=== PATIENT | female | born 1985 | race Caucasian/White ===

== ENCOUNTER 2018-07-26 15:00 | Inpatient (IN) | END 2018-07-27 19:05 | disposition home or self-care (01) | DRG 998 ==

== ENCOUNTER 2018-07-30 10:51 | Outpatient (CLI) | END 2018-07-30 12:50 | disposition home or self-care (01) ==

== ENCOUNTER 2018-09-16 12:33 | Inpatient (IN) | payer MEDICAID ==
[~2018-09-16] VITALS: Ht 149.9 cm; Wt 92.5 kg
[~2018-09-16 12:33] MED LIST: FER325 PO; PREN-93 PO
[2018-09-16 12:52] VITALS: Ht 149.9 cm; Wt 92.5 kg
[2018-09-16] MEDS: LACTATED RINGER'S 1,000 ML IV SCH ×3 (13:08→22:05)
--- NOTE | 2018-09-16 16:42 | HP ---
Date/Time of Note Date/Time of Note DATE: 09/16/18 TIME: 16:21 OB - History Hx of Present Free Text/Dictation 33 y.o at 38w1d sent from NST room by yessenia for extended monitor for tracing. Due to severe anemia they were doing antepartum test biweeekly today FRANKI 6.1 from 12.8 which was previously done even after hydration it was still 6+ ROM plus neg admitted for IV hydration today and repeat FRANKI in am ,also we could monitor tracing. Chief Complaint: oligohydramnios Estimated Due Date: Sep 29, 2018 : 5 Para: 4 Spontaneous : 0 Therapeutic : 0 Care: Good Care Ultrasounds: Normal mid trimester US, Other Obstetrical Complications: None Medical Complications: Other (severe anemia) Past Family/Social History * Past Medical, Surgical, Family and Obstetric Histories reviewed from chart. Blood Type: Unknown Rubella: unknown RPR/VDRL: Negative GBS Status: Unknown HBsAG: Unknown OB Admission Exam Physical Exam HEENT: WNL Heart: Rhythm Normal Lungs: Clear, Equal Abdomen: WNL Extremities: Normal Reflexes: Normal Cervical Dilatation: other Station: Other Heart Rate: 130's Accelerations: Accelerations Present Decelerations: No Decelerations Varibility: Minimum Contractions on Admission: None OB Assessment/Plan Reason for admission: other (oligohydramnios) Plan: Other (IV hydration and FRANKI in am extended observation of FHT) YOGESH WALKER MD Sep 16, 2018 16:34
[2018-09-17] MEDS: LACTATED RINGER'S 1,000 ML IV SCH ×3 (06:01→22:43)
[2018-09-17] MEDS ORDERED: PRENATAL VITAMIN PO SCH (09:00)
--- NOTE | 2018-09-17 19:05 | QN ---
Documentation Comment 33-year-old 004 with single intrauterine at 38 weeks and 2 days with borderline amniotic fluid index and no variability on heart rate tracing admitted for prolonged monitoring and repeat ultrasound. Initial FRANKI on perinatology ultrasound was 6.1, repeat in labor and delivery again was 6.1 cm. Patient was admitted for IV hydration. Repeat FRANKI today was 12.3. However on tracing of heart rate she has multiple episodes of no variability, has good acceleration and no deceleration. Due to gestational age of 38 weeks and 2 days with multiple episodes of no variability on heart rate tracing patient discussed with the perinatologistDr. Gutierrez who recommend delivery. DEISY CAMACHO Sep 17, 2018 19:05
[2018-09-17] MEDS ORDERED: BISACODYL 10 MG SUPP PR PRN (19:30)
[2018-09-17] MEDS ORDERED: MAGNESIUM HYDROXIDE 30ML CUP PO ONE (19:30)
[2018-09-17] MEDS ORDERED: BUTORPHANOL 2 MG INJ IV PRN (21:00)
[2018-09-17] MEDS ORDERED: OXYTOCIN 30 UNITS/LR 500 ML IV SCH ×3 (21:00)
[2018-09-17] MEDS ORDERED: OXYTOCIN 30 UNITS/LR 500 ML IV PRN (21:00)
[2018-09-17] MEDS ORDERED: OXYCODONE/ACETAMINOPHEN (5/325) TAB PO PRN (21:00)
[2018-09-17] MEDS ORDERED: IBUPROFEN 600 MG TAB PO PRN (21:00)
[2018-09-17] MEDS ORDERED: LIDOCAINE 1% (MPF) 30 ML INJ INJ PRN (21:00)
[2018-09-17] MEDS ORDERED: METHYLERGONOVINE 0.2 MG INJ IM PRN (21:00)
[2018-09-17] MEDS ORDERED: MISOPROSTOL 200 MCG TAB PR PRN (21:00)
[2018-09-17] MEDS ORDERED: CARBOPROST 250 MCG INJ IM PRN (21:00)
[2018-09-18] MEDS: LACTATED RINGER'S 1,000 ML IV SCH ×2 (07:18→15:36)
[2018-09-18 17:09] VITALS: BP 125/79; PULSE 88; RESP 18
[2018-09-18] MEDS: DEXTROSE 5%-LR 1,000 ML IV SCH (17:41)
[2018-09-18] MEDS: LACTATED RINGER'S 1,000 ML IV* SCH (17:41)
--- NOTE | 2018-09-18 17:41 | LDN ---
Date/Time of Note Date/Time of Note DATE: 09/18/18 TIME: 17:37 Delivery Summary 33-year-old 004 with single intrauterine at 38 weeks and 3 days delivered a viable male over intact perineum. Bladder completely drained by straight cath. Vacuum delivery with risks, benefits and alternatives discussed in detail with patient and her . Both expressed understanding, all of their questions answered. They have agreed. Vacuum was used to facilitate delivery due to bradycardia. Nose and mouth suctioned. Rest of body delivered. Cord clamped and cut after stopping pulsation. Baby given to the nurse. Placenta delivered intact and spontaneously with three-vessel cord. Patient tolerated procedure well. Time of delivery 16:41 Weight 7 pounds 7 ounces 9 at 1 minute and 9 at 5 minutes EBL 200 mL Weeks of Gestation 38 weeks and 3 days Placenta Delivered: Spontaneously Episiotomy: No Anesthesia type: None Estimated blood loss: 200 Sponge & Needle done & correct: Yes All needle counts correct: Yes Any foreign bodies felt in the: No Delivery Information Sex Sex: male Apgars 1 Minute: 9 5 Minute: 9 10 Minute: 10 Suctioning Nose & mouth suctioned at yessenia: Yes Umbilical Cord Umbilical cord with: 3 Vessels Cord presentations: no nuchal cord Cord Blood was obtained: Yes Mother & Baby Disposition Disposition Mom & Baby to Maternity; Good: Yes DEISY CAMACHO Sep 18, 2018 17:41
[2018-09-18] MEDS ORDERED: LANOLIN HPA 1 PKT TOP PRN (18:00)
[2018-09-18] MEDS ORDERED: OXYTOCIN 30 UNITS/LR 500 ML IV PRN (18:00)
[2018-09-18] MEDS ORDERED: ONDANSETRON 4 MG INJ IV PRN (18:00)
[2018-09-18] MEDS ORDERED: DIPHENHYDRAMINE 50 MG INJ IV PRN (18:00)
[2018-09-18] MEDS ORDERED: ACETAMINOPHEN 325 MG TAB PO PRN (18:00)
[2018-09-18] MEDS ORDERED: BENZOCAINE 20% 56 ML SPRAY TOP PRN (18:00)
[2018-09-18] MEDS ORDERED: WITCH HAZEL/GLYCERIN PAD PR PRN (18:00)
[2018-09-18] MEDS ORDERED: METHYLERGONOVINE 0.2 MG INJ IM PRN (18:00)
[2018-09-18] MEDS ORDERED: MISOPROSTOL 200 MCG TAB PR PRN (18:00)
[2018-09-18] MEDS ORDERED: CARBOPROST 250 MCG INJ IM PRN (18:00)
[2018-09-18] MEDS ORDERED: ZOLPIDEM 5 MG TAB PO PRN (18:00)
[2018-09-18] MEDS ORDERED: DIBUCAINE 1% 30 GM OINT TOP PRN (18:00)
[2018-09-18] MEDS ORDERED: OXYCODONE/ASPIRIN (4.88/325) TAB PO PRN (18:00)
--- NOTE | 2018-09-18 18:33 | NUR ---
rcvd. pt. via wheelchair w/ iv infusing 30 pitocin at 125ml/hr. pt. up to b.r. and voided 300ml w/out complaints. rn assist w/ pericare. pt. denies pain at this time. in demand used for poc regarding vaccinations, safety, on demand, jayla #[id number]. pt. vs wnl.
[2018-09-18 18:36] VITALS: BP 121/60; PULSE 76; RESP 20
[2018-09-18] MEDS: IBUPROFEN 600 MG TAB PO SCH (18:45)
[2018-09-18 20:20] VITALS: BP 111/52; PULSE 79; RESP 18
[2018-09-19] VITALS: BP 115/61; PULSE 75; RESP 19
[2018-09-19] MEDS: IBUPROFEN 600 MG TAB PO SCH ×5 (00:33→23:59)
[2018-09-19] MEDS: LACTATED RINGER'S 1,000 ML IV* SCH (01:41)
[2018-09-19] MEDS: DEXTROSE 5%-LR 1,000 ML IV SCH (01:41)
[2018-09-19 04:00] VITALS: BP 100/54; PULSE 73; RESP 17
--- NOTE | 2018-09-19 05:56 | NUR ---
EOSS Patient in stable condition, bonding well with baby, voiding without difficulty, fundus firm with small amount of lochia, ambulating well, afebrile, pain controlled by the medication.
[2018-09-19] MEDS ORDERED: NACL 0.9% 3 ML SYG IV SCH (09:00)
[2018-09-19] MEDS: SENNA/DOCUSATE NA (8.6MG/50MG) TAB PO PRN ×2 (09:08→21:39)
[2018-09-19 09:16] VITALS: BP 110/75; PULSE 81; RESP 16
[2018-09-19 11:30] VITALS: BP 119/66; PULSE 92; RESP 18
--- NOTE | 2018-09-19 14:03 | NSTRPT ---
NST Information Datetime Report Generated by CPN: 09/19/2018 14:03 Datetime: 09/16/2018 10:05 NST Information EGA: 38.1 Test Number: 3 Time on Monitor: 09/16/2018 10:40 Time off Monitor: 09/16/2018 10:59 NST Duration (Min): 19 Reason for NST: Other Reason for NST Other: SEVERE ANEMIA Test and Monitor Explained: Monitor Explained; Test Explained; Verbalized Understanding Pulse: 94 SBP: 118 DBP: 73 Test Evaluation NST Interventions: None Patient States Movement: Present Contraction Frequency: NONE FHR Baseline : 150 Variability: Minimal - <=5bpm Accelerations: 15X15 Decelerations: None FHR Category: Category II NST Results: Questionable Provider Notified: JANICE Comments: PT TO U/S CEPHALIC. FRANKI 6.[address] NASH[address] DR CAMACHO NOTIFIED OF CATEGORY 2 TRACING AND 6.1 FRANKI. PT SENT TO [facility] FOR EXTENDED MONITORING Electronically Signed By E-Signature: with User ID: [id number] Datetime: 09/13/2018 09:51 NST Information EGA: 37.5 NST Duration (Min): 34 Datetime: 09/02/2018 14:38 NST Information EGA: 36.1 NST Duration (Min): 42
[2018-09-19 16:00] VITALS: BP 116/72; PULSE 87; RESP 16
--- NOTE | 2018-09-19 17:22 | NUR ---
EOSS:VSS, FUNDUS FIRM, LOCHIA SMALL, VOIDING WITHOUT DIFFICULTY, BONDING WELL WITH BABY, MOTRIN CONTROLLS PAIN PER PATIENT, KILEY PO FOOD AND FLUIDS WITHOUT DIFFICULTY, OFTEN.
[2018-09-19 20:00] VITALS: BP 130/69; PULSE 74; RESP 18
[2018-09-20 04:00] VITALS: BP 128/74; PULSE 73; RESP 18
--- NOTE | 2018-09-20 04:57 | NUR ---
EOSS: Patient's vital signs are stable. Fundus is firm with scant lochia. Voiding without difficulty no BM . Bonding well with baby. Plan of care ongoing.
[2018-09-20] MEDS: IBUPROFEN 600 MG TAB PO SCH ×2 (05:44→11:18)
[2018-09-20 08:00] VITALS: BP 113/77; PULSE 68; RESP 18
[2018-09-20] MEDS ORDERED: MEASLES,MUMPS,RUBELLA VACCINE INJ SC* ONE (09:00)
[2018-09-20] MEDS ORDERED: DIPHTH/TET/ACEL PERTUSS (ADULT) 0.5 ML VIAL IM* ONE (09:00)
--- NOTE | 2018-09-20 12:23 | QN ---
Documentation Comment PPD#2 is stable afebrile tolerates diet No VB +BM +voids Vs stable Gen NAD Abd soft NT ND Genitalia No vlood at perineum --->Discharge plan tomorrow ARMAAN HOBSON M.D. Sep 20, 2018 12:23
--- NOTE | 2018-09-20 12:23 | DS ---
Date/Time of Note Date/Time of Note DATE: 09/20/18 TIME: 12:23 Discharge Summary Admission/Discharge Info Admit Date/Time Sep 16, 2018 at 14:30 Discharge Date/Time 09/20/2018 Discharge Diagnosis Patient Condition: Good Hospital Course uneventful Home Meds Reported Medications Ferrous Sulfate* (Ferrous Sulfate*) 325 Mg Tabec, 325 MG PO DAILY, TAB 07/26/18 Vit No.124/Iron/FA ( Vitamin Tablet) 1 Each Tablet, 1 EACH PO DAILY, TAB 07/26/18 Primary Care Provider Care Physician No Primary ARMAAN HOBSON M.D. Sep 20, 2018 12:23
--- NOTE | 2018-09-20 14:40 | NUR ---
PT DC'D TO HOME WITH SPOUSE IN STABLE CONDITION PER ORDERS. TRANSFERRED TO NURSERY TO CONTINUE DOUBLE PHOTOTHEREPY
== END 2018-09-20 15:41 | disposition home or self-care (01) | DRG 807 ==
LOC: OBT 12:33 → L-D 12:33 → OBT 14:49 → L-D 15:42 → PP1 09-18 17:57
PROVIDERS: ADMIT Obstetrics & Gynecology; ATTEND Obstetrics & Gynecology
PROC: 10E0XZZ Delivery of Products of Conception, External Approach (ICD-10-PCS; principal; 2018-09-18)
PROC: 3E033VJ Introduction of Other Hormone into Peripheral Vein, Percutaneous Approach (ICD-10-PCS; 2018-09-18)
DX: O41.03X0 Oligohydramnios, third trimester, not applicable or unspecified (principal); Z37.0 Single live birth; O99.02 Anemia complicating childbirth; Z3A.38 38 weeks gestation of pregnancy
CPT/HCPCS: 76818; 84112; 85025; 85610; 85730; 86592; 86850; 86900; 86901; 87340; 90686; 90715; 96360; 99464; G0463; J2590; J7120; J7121